=== PATIENT | female | born 1945 | race Caucasian/White ===

== ENCOUNTER 2020-07-31 11:19 | Inpatient (IN) ==
[2020-07-31] MEDS ORDERED: Dextrose Gel 15 GM/37.5 ML TUBE PO PRN ×2 (15:32)
[2020-07-31] MEDS ORDERED: D5% in Water 1,000 ML IVC PRN (15:32)
[2020-07-31] MEDS ORDERED: *HR* Dextrose 50 % in Water (Vial) 50 ML VIAL IVP PRN (15:32)
[2020-07-31] MEDS ORDERED: CEFTRIAXONE IN IS-OSM DEXTROSE 1 GM/50 ML PIGGYBACK IV SCH (16:00)
[2020-07-31] MEDS ORDERED: *HR* OxyCODONE Immed Rel 5 MG TABLET PO PRN ×2 (17:08→17:48)
[2020-07-31] MEDS: Insulin LISPRO 300 UNITS/3 ML VIAL SUBQ SCH ×2 (18:19→20:23)
[2020-07-31] MEDS: *HR* OxyCODONE Immed Rel 5 MG TABLET PO PRN ×2 (18:33→22:39)
[2020-07-31] MEDS: Acetaminophen 325 MG TABLET PO PRN (19:08)
[2020-07-31] MEDS: rOPINIRole 1 MG TABLET PO SCH (20:23)
[2020-07-31] MEDS: Aspirin 325 MG TABLET PO SCH (20:23)
[2020-07-31] MEDS: Melatonin 3 MG TABLET PO SCH (20:23)
[2020-07-31] MEDS: cefTRIAXone 2,000 MG in Water for inj. (sterile) 20 ML IVP SCH (20:24)
[2020-07-31] MEDS ORDERED: NON-FORMULARY MEDICATION 1 EACH EACH (Atorvastatin Calcium [Lipitor] 20 MG Tablet) PO SCH (21:00)
[2020-08-01] MEDS: *HR* OxyCODONE Immed Rel 5 MG TABLET PO PRN ×4 (03:31→17:05)
[2020-08-01 06:25] LABS: Basophils % 0.4 %; Eosinophils # 0.2 K/mcL (0.0-0.6); Eosinophils % 4.7 %; Hematocrit 22.7 % (35.3-44.9); Hemoglobin 7.1 g/dL (11.5-15.4); Immature Granulocytes % 0.4 % (0-4); Lymphocytes # 1.3 K/mcL (0.6-4.6); Lymphocytes % 28.1 %; Mean Corpuscular HGB Conc 31.3 g/dL (31.6-35.5); Mean Corpuscular Hemoglobin 27.2 pg (28.0-33.3); Mean Platelet Volume 9.9 fL (9.4-12.4); Monocytes # 0.4 K/mcL (0.0-1.3); Monocytes % 7.4 %; Neutrophils # 2.8 K/mcL (1.6-8.9); Platelet Count 269 K/mcL (140-400); Red Blood Count 2.61 M/mcL (3.82-4.97); Red Cell Distribution Width 15.5 % (11.5-14.5); White Blood Count 4.7 K/mcL (4.3-11.1)
[2020-08-01 06:33] LABS: Activated Partial Thrombo Time 22.4 Seconds (26.0-36.0)
[2020-08-01] MEDS: Insulin LISPRO 300 UNITS/3 ML VIAL SUBQ SCH ×4 (07:43→20:07)
[2020-08-01] MEDS: lisinopriL 10 MG TABLET PO SCH (07:53)
[2020-08-01] MEDS: Aspirin 325 MG TABLET PO SCH ×2 (07:54→20:05)
[2020-08-01] MEDS ORDERED: DAPTOmycin 500 MG in 0.9 % Sodium Chloride 100 ML IVPB SCH (10:00)
[2020-08-01] MEDS: DAPTOmycin 500 MG in 0.9 % Sodium Chloride 100 ML IVPB SCH (10:58)
[2020-08-01] MEDS: Nystatin POWDER 30 GM BOTTLE TP SCH ×2 (10:58→20:04)
[2020-08-01] MEDS: Acetaminophen 325 MG TABLET PO PRN (15:17)
[2020-08-01] MEDS ORDERED: *HR* OxyCODONE/APAP 5/325 TABLET PO ONE (18:01)
[2020-08-01] MEDS: *HR* LORazepam 0.5 MG TABLET PO PRN (20:05)
[2020-08-01] MEDS: rOPINIRole 1 MG TABLET PO SCH (20:05)
[2020-08-01] MEDS: Melatonin 3 MG TABLET PO SCH (20:05)
[2020-08-01] MEDS: cefTRIAXone 2,000 MG in Water for inj. (sterile) 20 ML IVP SCH (20:06)
[2020-08-02] MEDS: *HR* OxyCODONE Immed Rel 5 MG TABLET PO PRN ×5 (05:48→21:16)
[2020-08-02 06:18] LABS: Hematocrit 23.4 % (35.3-44.9); Hemoglobin 7.2 g/dL (11.5-15.4)
[2020-08-02] MEDS: Insulin LISPRO 300 UNITS/3 ML VIAL SUBQ SCH ×4 (09:02→21:17)
[2020-08-02] MEDS: Acetaminophen 325 MG TABLET PO PRN ×2 (09:03→17:15)
[2020-08-02] MEDS: Aspirin 325 MG TABLET PO SCH ×2 (09:03→21:17)
[2020-08-02] MEDS: Nystatin POWDER 30 GM BOTTLE TP SCH ×2 (09:04→21:17)
[2020-08-02] MEDS: lisinopriL 10 MG TABLET PO SCH (09:04)
[2020-08-02] MEDS: DAPTOmycin 500 MG in 0.9 % Sodium Chloride 100 ML IVPB SCH (11:39)
[2020-08-02] MEDS: *HR* LORazepam 0.5 MG TABLET PO PRN (17:15)
[2020-08-02] MEDS: Melatonin 3 MG TABLET PO SCH (21:16)
[2020-08-02] MEDS: rOPINIRole 1 MG TABLET PO SCH (21:16)
[2020-08-02] MEDS: cefTRIAXone 2,000 MG in Water for inj. (sterile) 20 ML IVP SCH (23:00)
[2020-08-03 06:21] LABS: Hematocrit 23.1 % (35.3-44.9); Hemoglobin 7.1 g/dL (11.5-15.4)
[2020-08-03] MEDS: Aspirin 325 MG TABLET PO SCH ×2 (09:35→21:41)
[2020-08-03] MEDS: lisinopriL 10 MG TABLET PO SCH (09:35)
[2020-08-03] MEDS: *HR* OxyCODONE Immed Rel 5 MG TABLET PO PRN ×4 (09:35→21:41)
[2020-08-03] MEDS: Insulin LISPRO 300 UNITS/3 ML VIAL SUBQ SCH ×4 (09:36→22:26)
[2020-08-03] MEDS: Nystatin POWDER 30 GM BOTTLE TP SCH ×2 (09:37→21:42)
[2020-08-03] MEDS: DAPTOmycin 500 MG in 0.9 % Sodium Chloride 100 ML IVPB SCH (12:55)
[2020-08-03] MEDS: Acetaminophen 325 MG TABLET PO PRN ×2 (12:58→19:46)
[2020-08-03] MEDS: rOPINIRole 1 MG TABLET PO SCH (17:46)
[2020-08-03] MEDS: Melatonin 3 MG TABLET PO SCH (21:41)
[2020-08-03] MEDS: cefTRIAXone 2,000 MG in 0.9 % Sodium Chloride Mini Bag 100 ML IVP SCH (21:41)
[2020-08-03] MEDS ORDERED: 0.9 % Sodium Chloride 250 ML ONE (23:02)
[2020-08-04] MEDS: *HR* Enoxaparin 40 MG/0.4 ML SYRINGE SQ SCH ×2 (05:14→08:04)
[2020-08-04] MEDS: *HR* OxyCODONE Immed Rel 5 MG TABLET PO PRN ×4 (05:23→20:52)
[2020-08-04 06:56] LABS: Hematocrit 27.2 % (35.3-44.9); Hemoglobin 8.4 g/dL (11.5-15.4); Mean Corpuscular HGB Conc 30.9 g/dL (31.6-35.5); Mean Corpuscular Volume 87.5 fL (83.0-100.0); Mean Platelet Volume 9.8 fL (9.4-12.4); Platelet Count 294 K/mcL (140-400); Red Blood Count 3.11 M/mcL (3.82-4.97); Red Cell Distribution Width 14.8 % (11.5-14.5); White Blood Count 4.5 K/mcL (4.3-11.1)
[2020-08-04 07:22] LABS: Calcium 8.1 mg/dL (8.6-10.3)
[2020-08-04] MEDS: Insulin LISPRO 300 UNITS/3 ML VIAL SUBQ SCH ×4 (08:01→21:01)
[2020-08-04] MEDS: Aspirin 325 MG TABLET PO SCH ×2 (08:02→20:52)
[2020-08-04] MEDS: Furosemide 40 MG TABLET PO SCH (08:02)
[2020-08-04] MEDS: lisinopriL 10 MG TABLET PO SCH (08:02)
[2020-08-04] MEDS: Acetaminophen 325 MG TABLET PO PRN ×2 (08:03→14:28)
[2020-08-04] MEDS: Nystatin POWDER 30 GM BOTTLE TP SCH ×2 (08:04→21:02)
[2020-08-04 11:10] LABS: Estimated Average Glucose 117 mg/dl; Hemoglobin A1C 5.7 %
[2020-08-04] MEDS: DAPTOmycin 500 MG in 0.9 % Sodium Chloride 100 ML IVPB SCH (12:11)
[2020-08-04] MEDS: rOPINIRole 1 MG TABLET PO SCH (16:30)
[2020-08-04] MEDS ORDERED: rOPINIRole 1 MG TABLET PO SCH (18:00)
[2020-08-04] MEDS: *HR* LORazepam 0.5 MG TABLET PO PRN (19:37)
[2020-08-04] MEDS: Melatonin 3 MG TABLET PO SCH (20:52)
[2020-08-04] MEDS: cefTRIAXone 2,000 MG in 0.9 % Sodium Chloride Mini Bag 100 ML IVP SCH (20:53)
[2020-08-05] MEDS: *HR* Enoxaparin 40 MG/0.4 ML SYRINGE SQ SCH (06:01)
[2020-08-05] MEDS: *HR* OxyCODONE Immed Rel 5 MG TABLET PO PRN ×5 (06:33→22:42)
[2020-08-05] MEDS: *HR* LORazepam 0.5 MG TABLET PO PRN ×2 (08:59→21:09)
[2020-08-05] MEDS: Furosemide 40 MG TABLET PO SCH (08:59)
[2020-08-05] MEDS: lisinopriL 10 MG TABLET PO SCH (08:59)
[2020-08-05] MEDS: Insulin LISPRO 300 UNITS/3 ML VIAL SUBQ SCH ×4 (08:59→19:57)
[2020-08-05] MEDS: Aspirin 325 MG TABLET PO SCH ×2 (08:59→21:09)
[2020-08-05] MEDS: Nystatin POWDER 30 GM BOTTLE TP SCH ×2 (09:00→21:50)
[2020-08-05] MEDS: Acetaminophen 325 MG TABLET PO PRN ×2 (09:06→16:39)
[2020-08-05] MEDS: DAPTOmycin 500 MG in 0.9 % Sodium Chloride 100 ML IVPB SCH (13:54)
[2020-08-05] MEDS: rOPINIRole 1 MG TABLET PO SCH (18:42)
[2020-08-05] MEDS: cefTRIAXone 2,000 MG in 0.9 % Sodium Chloride Mini Bag 100 ML IVP SCH (21:09)
[2020-08-05] MEDS: Melatonin 3 MG TABLET PO SCH (21:09)
[2020-08-06] MEDS: *HR* OxyCODONE Immed Rel 5 MG TABLET PO PRN ×3 (05:49→14:20)
[2020-08-06] MEDS: *HR* Enoxaparin 40 MG/0.4 ML SYRINGE SQ SCH (05:49)
[2020-08-06] MEDS: Insulin LISPRO 300 UNITS/3 ML VIAL SUBQ SCH ×4 (07:49→21:04)
[2020-08-06] MEDS: Furosemide 40 MG TABLET PO SCH (09:29)
[2020-08-06] MEDS: Aspirin 325 MG TABLET PO SCH ×2 (09:29→21:11)
[2020-08-06] MEDS: lisinopriL 10 MG TABLET PO SCH (09:29)
[2020-08-06] MEDS: Nystatin POWDER 30 GM BOTTLE TP SCH ×2 (09:31→21:12)
[2020-08-06] MEDS: DAPTOmycin 500 MG in 0.9 % Sodium Chloride 100 ML IVPB SCH (13:10)
[2020-08-06] MEDS: Acetaminophen 325 MG TABLET PO PRN (13:10)
[2020-08-06] MEDS: rOPINIRole 1 MG TABLET PO SCH (16:58)
[2020-08-06] MEDS: *HR* HYDROcodone/Acet 5/325 mg TABLET PO PRN ×2 (17:30→21:13)
[2020-08-06] MEDS: Melatonin 3 MG TABLET PO SCH (21:11)
[2020-08-06] MEDS: *HR* LORazepam 0.5 MG TABLET PO PRN (21:11)
[2020-08-06] MEDS: cefTRIAXone 2,000 MG in 0.9 % Sodium Chloride Mini Bag 100 ML IVP SCH (21:14)
[2020-08-07] MEDS: *HR* HYDROcodone/Acet 5/325 mg TABLET PO PRN ×5 (01:12→18:26)
[2020-08-07] MEDS: *HR* Enoxaparin 30 MG/0.3 ML SYRINGE SQ SCH (06:12)
[2020-08-07] MEDS: Insulin LISPRO 300 UNITS/3 ML VIAL SUBQ SCH ×4 (07:26→21:00)
[2020-08-07 08:55] LABS: Basophils % 0.7 %; Eosinophils # 0.2 K/mcL (0.0-0.6); Eosinophils % 4.5 %; Hemoglobin 8.7 g/dL (11.5-15.4); Immature Granulocytes % 0.5 % (0-4); Lymphocytes # 1.3 K/mcL (0.6-4.6); Mean Corpuscular HGB Conc 31.1 g/dL (31.6-35.5); Monocytes # 0.3 K/mcL (0.0-1.3); Monocytes % 6.4 %; Neutrophils # 2.4 K/mcL (1.6-8.9); Platelet Count 332 K/mcL (140-400); Red Blood Count 3.22 M/mcL (3.82-4.97); Red Cell Distribution Width 14.8 % (11.5-14.5); Segmented Neutrophils % 56.9 %; White Blood Count 4.2 K/mcL (4.3-11.1)
[2020-08-07 09:51] LABS: Albumin 3.4 g/dL (3.5-5.7); Albumin/Globulin Ratio 1.3 (1.1-2.2); Bilirubin,Indirect 0.3 mg/dL (0.0-1.0); Bilirubin,Total 0.3 mg/dL (0.3-1.0); Calcium 8.4 mg/dL (8.6-10.3); Globulin 2.7 g/dL (2.4-3.5); Potassium 4.1 mEq/L (3.5-5.1); Total Protein 6.1 g/dL (6.4-8.9)
[2020-08-07] MEDS: Aspirin 325 MG TABLET PO SCH ×2 (10:29→20:46)
[2020-08-07] MEDS: lisinopriL 10 MG TABLET PO SCH (10:29)
[2020-08-07] MEDS: Furosemide 40 MG TABLET PO SCH (10:29)
[2020-08-07] MEDS: Nystatin POWDER 30 GM BOTTLE TP SCH ×2 (10:31→20:46)
[2020-08-07] MEDS: DAPTOmycin 500 MG in 0.9 % Sodium Chloride 100 ML IVPB SCH (14:26)
[2020-08-07] MEDS: Acetaminophen 325 MG TABLET PO PRN (15:04)
[2020-08-07] MEDS: rOPINIRole 1 MG TABLET PO SCH (16:34)
[2020-08-07] MEDS: *HR* LORazepam 0.5 MG TABLET PO PRN (18:26)
[2020-08-07] MEDS: cefTRIAXone 2,000 MG in 0.9 % Sodium Chloride Mini Bag 100 ML IVP SCH (20:46)
[2020-08-07] MEDS: Melatonin 3 MG TABLET PO SCH (21:00)
[2020-08-08] MEDS: *HR* HYDROcodone/Acet 5/325 mg TABLET PO PRN ×4 (01:49→14:31)
[2020-08-08] MEDS: *HR* Enoxaparin 30 MG/0.3 ML SYRINGE SQ SCH (05:31)
[2020-08-08] MEDS: Insulin LISPRO 300 UNITS/3 ML VIAL SUBQ SCH ×4 (10:26→22:19)
[2020-08-08] MEDS: *HR* LORazepam 0.5 MG TABLET PO PRN (10:26)
[2020-08-08] MEDS: Aspirin 325 MG TABLET PO SCH ×2 (10:26→21:12)
[2020-08-08] MEDS: Nystatin POWDER 30 GM BOTTLE TP SCH ×2 (10:27→22:20)
[2020-08-08] MEDS: lisinopriL 10 MG TABLET PO SCH (10:27)
[2020-08-08] MEDS: Furosemide 40 MG TABLET PO SCH (10:27)
[2020-08-08] MEDS ORDERED: 0.9 % Sodium Chloride 1,000 ML ONE (12:06)
[2020-08-08] MEDS ORDERED: 0.9 % Sodium Chloride 500 ML ONE (12:07)
[2020-08-08] MEDS: DAPTOmycin 500 MG in 0.9 % Sodium Chloride 100 ML IVPB SCH (14:30)
[2020-08-08] MEDS: rOPINIRole 1 MG TABLET PO SCH (16:54)
[2020-08-08] MEDS: *HR* OxyCODONE Immed Rel 5 MG TABLET PO PRN (19:25)
[2020-08-08] MEDS: Melatonin 3 MG TABLET PO SCH (21:12)
[2020-08-08] MEDS: cefTRIAXone 2,000 MG in 0.9 % Sodium Chloride Mini Bag 100 ML IVP SCH (21:12)
[2020-08-09] MEDS: *HR* Enoxaparin 30 MG/0.3 ML SYRINGE SQ SCH (05:31)
[2020-08-09] MEDS: *HR* OxyCODONE Immed Rel 5 MG TABLET PO PRN ×3 (06:38→20:49)
[2020-08-09] MEDS: Insulin LISPRO 300 UNITS/3 ML VIAL SUBQ SCH ×4 (08:37→22:02)
[2020-08-09] MEDS: Furosemide 40 MG TABLET PO SCH (09:03)
[2020-08-09] MEDS: Nystatin POWDER 30 GM BOTTLE TP SCH ×2 (09:09→20:50)
[2020-08-09] MEDS: lisinopriL 10 MG TABLET PO SCH (09:09)
[2020-08-09] MEDS: Aspirin 325 MG TABLET PO SCH ×2 (09:09→20:50)
[2020-08-09] MEDS: Acetaminophen 325 MG TABLET PO PRN ×2 (09:09→14:15)
[2020-08-09] MEDS: DAPTOmycin 500 MG in 0.9 % Sodium Chloride 100 ML IVPB SCH (12:02)
[2020-08-09] MEDS: Gabapentin 100 MG CAPSULE PO SCH ×2 (14:37→20:50)
[2020-08-09] MEDS: rOPINIRole 1 MG TABLET PO SCH (16:42)
[2020-08-09] MEDS: Melatonin 3 MG TABLET PO SCH (20:50)
[2020-08-09] MEDS: cefTRIAXone 2,000 MG in 0.9 % Sodium Chloride Mini Bag 100 ML IVP SCH (20:50)
[2020-08-10] MEDS: *HR* Enoxaparin 30 MG/0.3 ML SYRINGE SQ SCH (06:06)
[2020-08-10] MEDS: *HR* OxyCODONE Immed Rel 5 MG TABLET PO PRN ×3 (06:06→20:40)
[2020-08-10] MEDS: Insulin LISPRO 300 UNITS/3 ML VIAL SUBQ SCH ×4 (07:44→20:55)
[2020-08-10] MEDS: Aspirin 325 MG TABLET PO SCH ×2 (08:22→20:40)
[2020-08-10] MEDS: Gabapentin 100 MG CAPSULE PO SCH ×3 (08:23→20:42)
[2020-08-10] MEDS: lisinopriL 10 MG TABLET PO SCH (08:23)
[2020-08-10] MEDS: Nystatin POWDER 30 GM BOTTLE TP SCH ×2 (08:25→20:56)
[2020-08-10] MEDS: DAPTOmycin 500 MG in 0.9 % Sodium Chloride 100 ML IVPB SCH (12:45)
[2020-08-10] MEDS: *HR* LORazepam 0.5 MG TABLET PO PRN (12:45)
[2020-08-10] MEDS: Acetaminophen 325 MG TABLET PO PRN ×2 (15:27→22:58)
[2020-08-10] MEDS: rOPINIRole 1 MG TABLET PO SCH (15:27)
[2020-08-10] MEDS: Melatonin 3 MG TABLET PO SCH (20:41)
[2020-08-10] MEDS: cefTRIAXone 2,000 MG in 0.9 % Sodium Chloride Mini Bag 100 ML IVP SCH (20:42)
[2020-08-11] MEDS: *HR* Enoxaparin 30 MG/0.3 ML SYRINGE SQ SCH (05:38)
[2020-08-11] MEDS: *HR* LORazepam 0.5 MG TABLET PO PRN (06:49)
[2020-08-11] MEDS: *HR* OxyCODONE Immed Rel 5 MG TABLET PO PRN ×4 (06:52→21:22)
[2020-08-11] MEDS: Aspirin 325 MG TABLET PO SCH ×2 (10:49→21:20)
[2020-08-11] MEDS: lisinopriL 10 MG TABLET PO SCH (10:49)
[2020-08-11] MEDS: Gabapentin 100 MG CAPSULE PO SCH ×3 (10:49→21:20)
[2020-08-11] MEDS: Insulin LISPRO 300 UNITS/3 ML VIAL SUBQ SCH ×4 (10:49→21:20)
[2020-08-11] MEDS: Nystatin POWDER 30 GM BOTTLE TP SCH ×2 (10:50→21:21)
[2020-08-11] MEDS: DAPTOmycin 500 MG in 0.9 % Sodium Chloride 100 ML IVPB SCH (12:25)
[2020-08-11] MEDS: rOPINIRole 1 MG TABLET PO SCH (17:20)
[2020-08-11] MEDS: Melatonin 3 MG TABLET PO SCH (21:20)
[2020-08-11] MEDS: cefTRIAXone 2,000 MG in 0.9 % Sodium Chloride Mini Bag 100 ML IVP SCH (21:21)
[2020-08-12] MEDS: *HR* OxyCODONE Immed Rel 5 MG TABLET PO PRN ×4 (03:36→20:23)
[2020-08-12] MEDS: *HR* Enoxaparin 30 MG/0.3 ML SYRINGE SQ SCH (06:03)
[2020-08-12] MEDS: Gabapentin 100 MG CAPSULE PO SCH ×3 (08:48→20:02)
[2020-08-12] MEDS: Insulin LISPRO 300 UNITS/3 ML VIAL SUBQ SCH (08:49)
[2020-08-12] MEDS: Aspirin 325 MG TABLET PO SCH ×2 (08:49→20:02)
[2020-08-12] MEDS: *HR* LORazepam 0.5 MG TABLET PO PRN (08:49)
[2020-08-12] MEDS: lisinopriL 10 MG TABLET PO SCH (08:49)
[2020-08-12] MEDS: Nystatin POWDER 30 GM BOTTLE TP SCH ×2 (12:40→20:03)
[2020-08-12] MEDS: DAPTOmycin 500 MG in 0.9 % Sodium Chloride 100 ML IVPB SCH (12:45)
[2020-08-12] MEDS: rOPINIRole 1 MG TABLET PO SCH (16:28)
[2020-08-12] MEDS: Melatonin 3 MG TABLET PO SCH (20:03)
[2020-08-12] MEDS: cefTRIAXone 2,000 MG in 0.9 % Sodium Chloride Mini Bag 100 ML IVP SCH (20:03)
[2020-08-13] MEDS: *HR* Enoxaparin 30 MG/0.3 ML SYRINGE SQ SCH (05:39)
[2020-08-13] MEDS: *HR* OxyCODONE Immed Rel 5 MG TABLET PO PRN (05:58)
[2020-08-13 06:31] VITALS: BP 149/68
[2020-08-13] MEDS ORDERED: Albuterol 2.5 MG/3 ML NEBULIZER IH PRN (06:40)
[2020-08-13 06:59] LABS: Basophils % 0.1 %; Eosinophils # 0.1 K/mcL (0.0-0.6); Eosinophils % 1.6 %; Hematocrit 26.7 % (35.3-44.9); Hemoglobin 8.2 g/dL (11.5-15.4); Immature Granulocytes % 0.5 % (0-4); Lymphocytes # 0.4 K/mcL (0.6-4.6); Lymphocytes % 5.6 %; Mean Corpuscular HGB Conc 30.7 g/dL (31.6-35.5); Mean Corpuscular Hemoglobin 26.5 pg (28.0-33.3); Mean Corpuscular Volume 86.4 fL (83.0-100.0); Mean Platelet Volume 9.4 fL (9.4-12.4); Monocytes # 0.3 K/mcL (0.0-1.3); Monocytes % 3.7 %; Platelet Count 340 K/mcL (140-400); Red Blood Count 3.09 M/mcL (3.82-4.97); Red Cell Distribution Width 14.6 % (11.5-14.5); Segmented Neutrophils % 88.5 %; White Blood Count 7.6 K/mcL (4.3-11.1)
[2020-08-13 07:16] LABS: Neutrophils # 6.7 K/mcL (1.6-8.9)
[2020-08-13 07:27] LABS: Calcium 8.6 mg/dL (8.6-10.3); Potassium 4.4 mEq/L (3.5-5.1)
[2020-08-13] MEDS ORDERED: *HR* Heparin 5,000 UNIT/ML VIAL IVP ONE (08:36)
[2020-08-13] MEDS ORDERED: *HR* Heparin 5,000 UNIT/ML VIAL IVP PRN ×2 (08:36)
[2020-08-13] MEDS ORDERED: Heparin 25,000UNIT/250ML 1/2NS 25,000 UNIT/250 ML IV.SOLN IVC SCH (08:45)
[2020-08-13 09:38] LABS: Hematocrit 25.9 % (35.3-44.9); Hemoglobin 7.9 g/dL (11.5-15.4); Mean Corpuscular HGB Conc 30.5 g/dL (31.6-35.5); Mean Corpuscular Volume 88.4 fL (83.0-100.0); Mean Platelet Volume 9.6 fL (9.4-12.4); Platelet Count 325 K/mcL (140-400); Red Blood Count 2.93 M/mcL (3.82-4.97); Red Cell Distribution Width 14.7 % (11.5-14.5)
== END 2020-08-13 09:55 | disposition short-term general hospital (02) | DRG 945 ==
LOC: INPPIK 16:56
PROVIDERS: ADMIT Family Medicine; ATTEND Family Medicine

== ENCOUNTER 2020-08-17 12:37 | Inpatient (IN) ==
[2020-08-17] MEDS ORDERED: *HR* OxyCODONE Immed Rel 5 MG TABLET PO PRN (15:07)
[2020-08-17] MEDS ORDERED: Ondansetron ODT 4 MG TAB.RAPDIS SL PRN (15:12)
[2020-08-17] MEDS ORDERED: *HR* Alteplase (Cathflo) 2 MG VIAL IVP PRN (15:17)
[2020-08-17 19:08] LABS: Hematocrit 26.2 % (35.3-44.9); Hemoglobin 8.2 g/dL (11.5-15.4); Mean Corpuscular HGB Conc 31.3 g/dL (31.6-35.5); Mean Corpuscular Hemoglobin 25.9 pg (28.0-33.3); Mean Corpuscular Volume 82.6 fL (83.0-100.0); Mean Platelet Volume 9.7 fL (9.4-12.4); Platelet Count 401 K/mcL (140-400); Red Blood Count 3.17 M/mcL (3.82-4.97); Red Cell Distribution Width 14.6 % (11.5-14.5); White Blood Count 7.5 K/mcL (4.3-11.1)
[2020-08-17 19:28] LABS: Calcium 8.6 mg/dL (8.6-10.3); Magnesium 1.4 mg/dL (1.6-2.6); Potassium 3.4 mEq/L (3.5-5.1)
[2020-08-17] MEDS: *HR* OxyCODONE/APAP 7.5/325 TABLET PO PRN (20:27)
[2020-08-17] MEDS: Aspirin 325 MG TABLET PO SCH (20:28)
[2020-08-17] MEDS: rOPINIRole 1 MG TABLET PO SCH (20:28)
[2020-08-17] MEDS: Melatonin 3 MG TABLET PO SCH (20:31)
[2020-08-17] MEDS: Gabapentin 100 MG CAPSULE PO SCH (20:31)
[2020-08-17] MEDS ORDERED: rOPINIRole 1 MG TABLET PO SCH (21:00)
[2020-08-18] MEDS: Aspirin 325 MG TABLET PO SCH ×2 (10:05→21:10)
[2020-08-18] MEDS: Furosemide 40 MG TABLET PO SCH (10:05)
[2020-08-18] MEDS: Gabapentin 100 MG CAPSULE PO SCH ×3 (10:05→21:10)
[2020-08-18] MEDS: cefTRIAXone 2,000 MG in 0.9 % Sodium Chloride Mini Bag 100 ML IVPB SCH (10:06)
[2020-08-18] MEDS: lisinopriL 10 MG TABLET PO SCH (10:06)
[2020-08-18] MEDS: *HR* OxyCODONE/APAP 7.5/325 TABLET PO PRN ×2 (10:09→17:29)
[2020-08-18] MEDS ORDERED: rOPINIRole 1 MG TABLET PO SCH (17:00)
[2020-08-18] MEDS: rOPINIRole 1 MG TABLET PO SCH (17:29)
[2020-08-18] MEDS: DAPTOmycin 500 MG in 0.9 % Sodium Chloride 100 ML IVPB SCH (17:29)
[2020-08-18] MEDS: Melatonin 3 MG TABLET PO SCH (21:11)
[2020-08-19] MEDS: Furosemide 40 MG TABLET PO SCH (09:36)
[2020-08-19] MEDS: lisinopriL 10 MG TABLET PO SCH (09:36)
[2020-08-19] MEDS: Gabapentin 100 MG CAPSULE PO SCH ×3 (09:36→21:18)
[2020-08-19] MEDS: Aspirin 325 MG TABLET PO SCH ×2 (09:37→21:16)
[2020-08-19] MEDS: cefTRIAXone 2,000 MG in 0.9 % Sodium Chloride Mini Bag 100 ML IVPB SCH (09:37)
[2020-08-19] MEDS: *HR* OxyCODONE/APAP 7.5/325 TABLET PO PRN ×2 (09:39→16:20)
[2020-08-19] MEDS: Magnesium Oxide 400 MG TABLET PO SCH ×2 (10:11→21:16)
[2020-08-19] MEDS: DAPTOmycin 500 MG in 0.9 % Sodium Chloride 100 ML IVPB SCH (16:20)
[2020-08-19] MEDS: rOPINIRole 1 MG TABLET PO SCH (16:20)
[2020-08-19] MEDS: Melatonin 3 MG TABLET PO SCH (21:17)
[2020-08-20 07:01] LABS: Basophils % 0.5 %; Eosinophils # 0.5 K/mcL (0.0-0.6); Hematocrit 25.8 % (35.3-44.9); Immature Granulocytes % 1.4 % (0-4); Lymphocytes # 1.3 K/mcL (0.6-4.6); Lymphocytes % 21.1 %; Mean Corpuscular Hemoglobin 25.9 pg (28.0-33.3); Mean Corpuscular Volume 83.5 fL (83.0-100.0); Mean Platelet Volume 9.6 fL (9.4-12.4); Monocytes # 0.5 K/mcL (0.0-1.3); Monocytes % 8.8 %; Neutrophils # 3.5 K/mcL (1.6-8.9); Platelet Count 405 K/mcL (140-400); Red Blood Count 3.09 M/mcL (3.82-4.97); Red Cell Distribution Width 14.7 % (11.5-14.5); Segmented Neutrophils % 59.2 %; White Blood Count 5.9 K/mcL (4.3-11.1)
[2020-08-20] MEDS: Gabapentin 100 MG CAPSULE PO SCH ×3 (07:55→22:58)
[2020-08-20] MEDS: Magnesium Oxide 400 MG TABLET PO SCH ×2 (07:55→22:58)
[2020-08-20] MEDS: Aspirin 325 MG TABLET PO SCH ×2 (07:55→22:59)
[2020-08-20] MEDS: *HR* OxyCODONE/APAP 7.5/325 TABLET PO PRN ×2 (07:55→14:47)
[2020-08-20] MEDS: lisinopriL 10 MG TABLET PO SCH (07:55)
[2020-08-20] MEDS: Furosemide 40 MG TABLET PO SCH (07:55)
[2020-08-20 08:53] LABS: Albumin 3.2 g/dL (3.5-5.7); Albumin/Globulin Ratio 1.1 (1.1-2.2); Bilirubin,Total 0.2 mg/dL (0.3-1.0); Calcium 8.6 mg/dL (8.6-10.3); Globulin 2.8 g/dL (2.4-3.5); Potassium 4.3 mEq/L (3.5-5.1)
[2020-08-20] MEDS: cefTRIAXone 2,000 MG in 0.9 % Sodium Chloride Mini Bag 100 ML IVPB SCH (10:19)
[2020-08-20] MEDS: rOPINIRole 1 MG TABLET PO SCH (15:48)
[2020-08-20] MEDS: *HR* LORazepam 0.5 MG TABLET PO PRN (15:48)
[2020-08-20] MEDS: DAPTOmycin 500 MG in 0.9 % Sodium Chloride 100 ML IVPB SCH (15:49)
[2020-08-20] MEDS: Melatonin 3 MG TABLET PO SCH (22:58)
[2020-08-21] MEDS ORDERED: Fluconazole 150 MG TABLET PO ONE (07:47)
[2020-08-21] MEDS: Aspirin 325 MG TABLET PO SCH ×2 (08:01→21:13)
[2020-08-21] MEDS: Gabapentin 100 MG CAPSULE PO SCH ×3 (08:01→21:13)
[2020-08-21] MEDS: Magnesium Oxide 400 MG TABLET PO SCH ×2 (08:01→21:13)
[2020-08-21] MEDS: Furosemide 40 MG TABLET PO SCH (08:01)
[2020-08-21] MEDS: *HR* OxyCODONE/APAP 7.5/325 TABLET PO PRN ×2 (08:02→17:32)
[2020-08-21] MEDS: cefTRIAXone 2,000 MG in 0.9 % Sodium Chloride Mini Bag 100 ML IVPB SCH (08:02)
[2020-08-21] MEDS: lisinopriL 10 MG TABLET PO SCH (08:02)
[2020-08-21] MEDS: DAPTOmycin 500 MG in 0.9 % Sodium Chloride 100 ML IVPB SCH (17:32)
[2020-08-21] MEDS: rOPINIRole 1 MG TABLET PO SCH (17:32)
[2020-08-21] MEDS: Melatonin 3 MG TABLET PO SCH (21:12)
[2020-08-22] MEDS: *HR* OxyCODONE/APAP 7.5/325 TABLET PO PRN ×2 (09:50→16:18)
[2020-08-22] MEDS: Aspirin 325 MG TABLET PO SCH ×2 (09:52→20:59)
[2020-08-22] MEDS: Furosemide 40 MG TABLET PO SCH (09:53)
[2020-08-22] MEDS: Magnesium Oxide 400 MG TABLET PO SCH ×2 (09:53→20:59)
[2020-08-22] MEDS: Gabapentin 100 MG CAPSULE PO SCH ×3 (09:54→20:58)
[2020-08-22] MEDS: lisinopriL 10 MG TABLET PO SCH (09:54)
[2020-08-22] MEDS: cefTRIAXone 2,000 MG in 0.9 % Sodium Chloride Mini Bag 100 ML IVPB SCH (09:54)
[2020-08-22] MEDS: rOPINIRole 1 MG TABLET PO SCH (16:18)
[2020-08-22] MEDS: DAPTOmycin 500 MG in 0.9 % Sodium Chloride 100 ML IVPB SCH (16:20)
[2020-08-22] MEDS: Melatonin 3 MG TABLET PO SCH (20:59)
[2020-08-23] MEDS: *HR* OxyCODONE/APAP 7.5/325 TABLET PO PRN ×3 (06:19→18:21)
[2020-08-23] MEDS: Magnesium Oxide 400 MG TABLET PO SCH ×2 (09:41→21:35)
[2020-08-23] MEDS: Aspirin 325 MG TABLET PO SCH ×2 (09:41→21:34)
[2020-08-23] MEDS: Furosemide 40 MG TABLET PO SCH (09:41)
[2020-08-23] MEDS: Gabapentin 100 MG CAPSULE PO SCH ×3 (09:41→21:35)
[2020-08-23] MEDS: lisinopriL 10 MG TABLET PO SCH (09:41)
[2020-08-23] MEDS: cefTRIAXone 2,000 MG in 0.9 % Sodium Chloride Mini Bag 100 ML IVPB SCH (09:42)
[2020-08-23] MEDS: DAPTOmycin 500 MG in 0.9 % Sodium Chloride 100 ML IVPB SCH (15:10)
[2020-08-23] MEDS: rOPINIRole 1 MG TABLET PO SCH (16:36)
[2020-08-23] MEDS: Melatonin 3 MG TABLET PO SCH (21:34)
[2020-08-24] MEDS: Aspirin 325 MG TABLET PO SCH ×2 (09:51→22:07)
[2020-08-24] MEDS: Gabapentin 100 MG CAPSULE PO SCH ×3 (09:52→22:07)
[2020-08-24] MEDS: Magnesium Oxide 400 MG TABLET PO SCH ×2 (09:52→22:07)
[2020-08-24] MEDS: lisinopriL 10 MG TABLET PO SCH (09:52)
[2020-08-24] MEDS: cefTRIAXone 2,000 MG in 0.9 % Sodium Chloride Mini Bag 100 ML IVPB SCH (09:52)
[2020-08-24] MEDS: Furosemide 40 MG TABLET PO SCH (09:52)
[2020-08-24] MEDS: *HR* OxyCODONE/APAP 7.5/325 TABLET PO PRN ×2 (11:40→17:48)
[2020-08-24] MEDS: rOPINIRole 1 MG TABLET PO SCH (16:38)
[2020-08-24] MEDS: DAPTOmycin 500 MG in 0.9 % Sodium Chloride 100 ML IVPB SCH (16:38)
[2020-08-24] MEDS: Melatonin 3 MG TABLET PO SCH (22:07)
[2020-08-25] MEDS: *HR* OxyCODONE/APAP 7.5/325 TABLET PO PRN ×3 (08:21→20:08)
[2020-08-25] MEDS: Aspirin 325 MG TABLET PO SCH ×2 (08:22→20:08)
[2020-08-25] MEDS: lisinopriL 10 MG TABLET PO SCH (08:22)
[2020-08-25] MEDS: cefTRIAXone 2,000 MG in 0.9 % Sodium Chloride Mini Bag 100 ML IVPB SCH (08:22)
[2020-08-25] MEDS: Gabapentin 100 MG CAPSULE PO SCH ×3 (08:22→20:08)
[2020-08-25] MEDS: Magnesium Oxide 400 MG TABLET PO SCH ×2 (08:22→20:08)
[2020-08-25] MEDS: Furosemide 40 MG TABLET PO SCH (08:22)
[2020-08-25] MEDS: DAPTOmycin 500 MG in 0.9 % Sodium Chloride 100 ML IVPB SCH (16:59)
[2020-08-25] MEDS: rOPINIRole 1 MG TABLET PO SCH (16:59)
[2020-08-25] MEDS: Melatonin 3 MG TABLET PO SCH (20:08)
[2020-08-26] MEDS: Magnesium Oxide 400 MG TABLET PO SCH ×2 (08:35→22:03)
[2020-08-26] MEDS: Aspirin 325 MG TABLET PO SCH ×2 (08:35→22:03)
[2020-08-26] MEDS: Gabapentin 100 MG CAPSULE PO SCH ×3 (08:36→22:03)
[2020-08-26] MEDS: Furosemide 40 MG TABLET PO SCH (08:37)
[2020-08-26] MEDS: *HR* OxyCODONE/APAP 7.5/325 TABLET PO PRN ×3 (08:37→22:04)
[2020-08-26] MEDS: cefTRIAXone 2,000 MG in 0.9 % Sodium Chloride Mini Bag 100 ML IVPB SCH (08:38)
[2020-08-26] MEDS: lisinopriL 10 MG TABLET PO SCH (08:38)
[2020-08-26] MEDS: rOPINIRole 1 MG TABLET PO SCH (16:09)
[2020-08-26] MEDS: DAPTOmycin 500 MG in 0.9 % Sodium Chloride 100 ML IVPB SCH (16:09)
[2020-08-26] MEDS: Melatonin 3 MG TABLET PO SCH (22:03)
[2020-08-27] MEDS: *HR* OxyCODONE/APAP 7.5/325 TABLET PO PRN ×3 (05:47→20:11)
[2020-08-27] MEDS: Gabapentin 100 MG CAPSULE PO SCH ×3 (08:05→20:11)
[2020-08-27] MEDS: Magnesium Oxide 400 MG TABLET PO SCH ×2 (08:05→20:11)
[2020-08-27] MEDS: lisinopriL 10 MG TABLET PO SCH (08:06)
[2020-08-27] MEDS: Furosemide 40 MG TABLET PO SCH (08:06)
[2020-08-27] MEDS: Aspirin 325 MG TABLET PO SCH ×2 (08:07→20:10)
[2020-08-27] MEDS: cefTRIAXone 2,000 MG in 0.9 % Sodium Chloride Mini Bag 100 ML IVPB SCH (08:08)
[2020-08-27] MEDS: DAPTOmycin 500 MG in 0.9 % Sodium Chloride 100 ML IVPB SCH (15:31)
[2020-08-27] MEDS: rOPINIRole 1 MG TABLET PO SCH (16:20)
[2020-08-27] MEDS: Melatonin 3 MG TABLET PO SCH (20:10)
[2020-08-28] MEDS: *HR* OxyCODONE/APAP 7.5/325 TABLET PO PRN ×3 (05:09→20:48)
[2020-08-28] MEDS: lisinopriL 10 MG TABLET PO SCH (09:41)
[2020-08-28] MEDS: Gabapentin 100 MG CAPSULE PO SCH ×3 (09:41→20:48)
[2020-08-28] MEDS: Aspirin 325 MG TABLET PO SCH ×2 (09:41→20:48)
[2020-08-28] MEDS: Furosemide 40 MG TABLET PO SCH (09:41)
[2020-08-28] MEDS: Magnesium Oxide 400 MG TABLET PO SCH ×2 (09:41→20:48)
[2020-08-28] MEDS: cefTRIAXone 2,000 MG in 0.9 % Sodium Chloride Mini Bag 100 ML IVPB SCH (09:42)
[2020-08-28] MEDS: Acetaminophen 325 MG TABLET PO PRN (14:38)
[2020-08-28] MEDS: DAPTOmycin 500 MG in 0.9 % Sodium Chloride 100 ML IVPB SCH (15:46)
[2020-08-28] MEDS: rOPINIRole 1 MG TABLET PO SCH (15:46)
[2020-08-28] MEDS: Melatonin 3 MG TABLET PO SCH (20:48)
[2020-08-29] MEDS: *HR* OxyCODONE/APAP 7.5/325 TABLET PO PRN ×3 (06:08→20:59)
[2020-08-29 06:15] LABS: Basophils % 0.6 %; Eosinophils # 0.3 K/mcL (0.0-0.6); Hematocrit 25.6 % (35.3-44.9); Hemoglobin 7.8 g/dL (11.5-15.4); Immature Granulocytes % 0.6 % (0-4); Lymphocytes # 1.4 K/mcL (0.6-4.6); Lymphocytes % 26.8 %; Mean Corpuscular HGB Conc 30.5 g/dL (31.6-35.5); Mean Corpuscular Hemoglobin 25.2 pg (28.0-33.3); Mean Corpuscular Volume 82.6 fL (83.0-100.0); Mean Platelet Volume 9.8 fL (9.4-12.4); Monocytes # 0.3 K/mcL (0.0-1.3); Monocytes % 5.9 %; Neutrophils # 3.2 K/mcL (1.6-8.9); Platelet Count 353 K/mcL (140-400); Red Cell Distribution Width 14.9 % (11.5-14.5); Segmented Neutrophils % 60.1 %; White Blood Count 5.3 K/mcL (4.3-11.1)
[2020-08-29 06:34] LABS: Albumin 3.2 g/dL (3.5-5.7); Albumin/Globulin Ratio 1.3 (1.1-2.2); Bilirubin,Total 0.3 mg/dL (0.3-1.0); Calcium 8.5 mg/dL (8.6-10.3); Globulin 2.5 g/dL (2.4-3.5); Potassium 5.4 mEq/L (3.5-5.1); Total Protein 5.7 g/dL (6.4-8.9)
[2020-08-29] MEDS: Magnesium Oxide 400 MG TABLET PO SCH ×2 (08:39→20:57)
[2020-08-29] MEDS: cefTRIAXone 2,000 MG in 0.9 % Sodium Chloride Mini Bag 100 ML IVPB SCH (08:39)
[2020-08-29] MEDS: Gabapentin 100 MG CAPSULE PO SCH ×3 (08:39→20:59)
[2020-08-29] MEDS: Aspirin 325 MG TABLET PO SCH (08:39)
[2020-08-29] MEDS: Furosemide 40 MG TABLET PO SCH (08:39)
[2020-08-29] MEDS ORDERED: 0.9 % Sodium Chloride 1,000 ML IVC SCH (15:45)
[2020-08-29] MEDS: rOPINIRole 1 MG TABLET PO SCH (16:17)
[2020-08-29] MEDS: Melatonin 3 MG TABLET PO SCH (20:57)
[2020-08-29] MEDS: Sulfamethoxazole/Trimeth DS 1 EACH TABLET PO SCH (20:58)
[2020-08-30] MEDS: *HR* LORazepam 0.5 MG TABLET PO PRN (01:49)
[2020-08-30] MEDS: *HR* OxyCODONE/APAP 7.5/325 TABLET PO PRN ×3 (03:05→14:06)
[2020-08-30] MEDS: *HR* Enoxaparin 30 MG/0.3 ML SYRINGE SQ SCH (05:29)
[2020-08-30 07:29] LABS: Hematocrit 24.7 % (35.3-44.9); Hemoglobin 7.7 g/dL (11.5-15.4); Mean Corpuscular HGB Conc 31.2 g/dL (31.6-35.5); Mean Corpuscular Hemoglobin 25.4 pg (28.0-33.3); Mean Corpuscular Volume 81.5 fL (83.0-100.0); Platelet Count 361 K/mcL (140-400); Red Blood Count 3.03 M/mcL (3.82-4.97); Red Cell Distribution Width 15.2 % (11.5-14.5); White Blood Count 5.8 K/mcL (4.3-11.1)
[2020-08-30 07:54] LABS: Calcium 8.6 mg/dL (8.6-10.3); Potassium 5.1 mEq/L (3.5-5.1)
[2020-08-30] MEDS: Furosemide 40 MG TABLET PO SCH (08:55)
[2020-08-30] MEDS: Aspirin Enteric Coated 81 MG Tablet PO SCH (08:56)
[2020-08-30] MEDS: Sulfamethoxazole/Trimeth DS 1 EACH TABLET PO SCH ×2 (08:57→20:41)
[2020-08-30] MEDS: Gabapentin 100 MG CAPSULE PO SCH ×3 (08:57→20:41)
[2020-08-30] MEDS: lisinopriL 10 MG TABLET PO SCH (08:57)
[2020-08-30] MEDS: Magnesium Oxide 400 MG TABLET PO SCH ×2 (08:58→20:41)
[2020-08-30] MEDS: cefTRIAXone 2,000 MG in 0.9 % Sodium Chloride Mini Bag 100 ML IVPB SCH (16:02)
[2020-08-30] MEDS: rOPINIRole 1 MG TABLET PO SCH (16:03)
[2020-08-30] MEDS: Melatonin 3 MG TABLET PO SCH (20:41)
[2020-08-31] MEDS: *HR* Enoxaparin 30 MG/0.3 ML SYRINGE SQ SCH (06:07)
[2020-08-31] MEDS: Aspirin Enteric Coated 81 MG Tablet PO SCH (07:51)
[2020-08-31] MEDS: lisinopriL 10 MG TABLET PO SCH (07:52)
[2020-08-31] MEDS: Magnesium Oxide 400 MG TABLET PO SCH ×2 (07:52→20:12)
[2020-08-31] MEDS: Gabapentin 100 MG CAPSULE PO SCH ×3 (07:52→20:12)
[2020-08-31] MEDS: Sulfamethoxazole/Trimeth DS 1 EACH TABLET PO SCH ×2 (07:52→20:12)
[2020-08-31] MEDS: Furosemide 40 MG TABLET PO SCH (07:53)
[2020-08-31] MEDS: *HR* OxyCODONE/APAP 7.5/325 TABLET PO PRN ×3 (07:53→20:12)
[2020-08-31] MEDS ORDERED: 0.9 % Sodium Chloride 1,000 ML IVC SCH (11:30)
[2020-08-31] MEDS: Acetaminophen 325 MG TABLET PO PRN (16:18)
[2020-08-31] MEDS: rOPINIRole 1 MG TABLET PO SCH (16:19)
[2020-08-31] MEDS: cefTRIAXone 2,000 MG in 0.9 % Sodium Chloride Mini Bag 100 ML IVPB SCH (16:19)
[2020-08-31] MEDS: Melatonin 3 MG TABLET PO SCH (20:13)
[2020-09-01] MEDS: *HR* Enoxaparin 30 MG/0.3 ML SYRINGE SQ SCH (05:36)
[2020-09-01 06:54] LABS: Calcium 8.6 mg/dL (8.6-10.3); Potassium 4.9 mEq/L (3.5-5.1)
[2020-09-01] MEDS: *HR* OxyCODONE/APAP 7.5/325 TABLET PO PRN ×2 (09:12→15:11)
[2020-09-01] MEDS: Gabapentin 100 MG CAPSULE PO SCH ×3 (09:13→20:14)
[2020-09-01] MEDS: Magnesium Oxide 400 MG TABLET PO SCH ×2 (09:13→20:13)
[2020-09-01] MEDS: Aspirin Enteric Coated 81 MG Tablet PO SCH (09:13)
[2020-09-01] MEDS: Sulfamethoxazole/Trimeth DS 1 EACH TABLET PO SCH ×2 (09:13→20:13)
[2020-09-01] MEDS: lisinopriL 10 MG TABLET PO SCH (09:13)
[2020-09-01] MEDS: Acetaminophen 325 MG TABLET PO PRN (11:03)
[2020-09-01] MEDS: rOPINIRole 1 MG TABLET PO SCH (16:19)
[2020-09-01] MEDS: cefTRIAXone 2,000 MG in 0.9 % Sodium Chloride Mini Bag 100 ML IVPB SCH (16:20)
[2020-09-01] MEDS: Melatonin 3 MG TABLET PO SCH (20:13)
[2020-09-02] MEDS: *HR* Enoxaparin 30 MG/0.3 ML SYRINGE SQ SCH (05:57)
[2020-09-02] MEDS: *HR* OxyCODONE/APAP 7.5/325 TABLET PO PRN ×3 (05:57→18:56)
[2020-09-02] MEDS: Furosemide 40 MG TABLET PO SCH ×2 (09:16→09:17)
[2020-09-02] MEDS: Gabapentin 100 MG CAPSULE PO SCH ×3 (09:17→20:32)
[2020-09-02] MEDS: Aspirin Enteric Coated 81 MG Tablet PO SCH (09:17)
[2020-09-02] MEDS: Sulfamethoxazole/Trimeth DS 1 EACH TABLET PO SCH ×2 (09:17→20:33)
[2020-09-02] MEDS: Magnesium Oxide 400 MG TABLET PO SCH ×2 (09:17→20:32)
[2020-09-02] MEDS: lisinopriL 10 MG TABLET PO SCH (09:17)
[2020-09-02] MEDS: cefTRIAXone 2,000 MG in 0.9 % Sodium Chloride Mini Bag 100 ML IVPB SCH (15:03)
[2020-09-02] MEDS: Acetaminophen 325 MG TABLET PO PRN (15:03)
[2020-09-02] MEDS: rOPINIRole 1 MG TABLET PO SCH (17:11)
[2020-09-02] MEDS: Melatonin 3 MG TABLET PO SCH (20:32)
[2020-09-03] MEDS: *HR* Enoxaparin 30 MG/0.3 ML SYRINGE SQ SCH (05:18)
[2020-09-03] MEDS: *HR* OxyCODONE/APAP 7.5/325 TABLET PO PRN ×3 (05:18→18:12)
[2020-09-03] MEDS: Acetaminophen 325 MG TABLET PO PRN ×2 (05:18→14:39)
[2020-09-03] MEDS: Aspirin Enteric Coated 81 MG Tablet PO SCH (09:58)
[2020-09-03] MEDS: Magnesium Oxide 400 MG TABLET PO SCH ×2 (09:58→20:47)
[2020-09-03] MEDS: Sulfamethoxazole/Trimeth DS 1 EACH TABLET PO SCH ×2 (09:58→20:47)
[2020-09-03] MEDS: lisinopriL 10 MG TABLET PO SCH (09:58)
[2020-09-03] MEDS: Furosemide 40 MG TABLET PO SCH (09:59)
[2020-09-03] MEDS: Gabapentin 100 MG CAPSULE PO SCH ×3 (10:01→20:47)
[2020-09-03] MEDS: rOPINIRole 1 MG TABLET PO SCH (16:26)
[2020-09-03] MEDS: cefTRIAXone 2,000 MG in 0.9 % Sodium Chloride Mini Bag 100 ML IVPB SCH (16:26)
[2020-09-03] MEDS: Melatonin 3 MG TABLET PO SCH (20:47)
[2020-09-04] MEDS: *HR* Enoxaparin 30 MG/0.3 ML SYRINGE SQ SCH (06:00)
[2020-09-04] MEDS: *HR* OxyCODONE/APAP 7.5/325 TABLET PO PRN ×2 (06:03→12:05)
[2020-09-04] MEDS: lisinopriL 10 MG TABLET PO SCH (09:29)
[2020-09-04] MEDS: Gabapentin 100 MG CAPSULE PO SCH ×3 (09:29→21:34)
[2020-09-04] MEDS: Sulfamethoxazole/Trimeth DS 1 EACH TABLET PO SCH ×2 (09:29→21:34)
[2020-09-04] MEDS: Acetaminophen 325 MG TABLET PO PRN ×2 (09:29→15:35)
[2020-09-04] MEDS: Magnesium Oxide 400 MG TABLET PO SCH ×2 (09:30→21:34)
[2020-09-04] MEDS: Aspirin Enteric Coated 81 MG Tablet PO SCH (09:30)
[2020-09-04] MEDS: Furosemide 40 MG TABLET PO SCH (09:30)
[2020-09-04] MEDS: cefTRIAXone 2,000 MG in 0.9 % Sodium Chloride Mini Bag 100 ML IVPB SCH (15:36)
[2020-09-04] MEDS: rOPINIRole 1 MG TABLET PO SCH (16:22)
[2020-09-04] MEDS: Melatonin 3 MG TABLET PO SCH (21:34)
[2020-09-05] MEDS: *HR* OxyCODONE/APAP 7.5/325 TABLET PO PRN (03:48)
[2020-09-05] MEDS: *HR* Enoxaparin 30 MG/0.3 ML SYRINGE SQ SCH (05:13)
[2020-09-05 06:50] VITALS: BP 142/64
[2020-09-05] MEDS: Sulfamethoxazole/Trimeth DS 1 EACH TABLET PO SCH (07:27)
[2020-09-05] MEDS: Aspirin Enteric Coated 81 MG Tablet PO SCH (07:27)
[2020-09-05 07:28] LABS: Basophils % 0.8 %; Eosinophils # 0.2 K/mcL (0.0-0.6); Eosinophils % 3.4 %; Hematocrit 26.9 % (35.3-44.9); Hemoglobin 8.2 g/dL (11.5-15.4); Immature Granulocytes % 0.4 % (0-4); Lymphocytes # 1.4 K/mcL (0.6-4.6); Mean Corpuscular HGB Conc 30.5 g/dL (31.6-35.5); Mean Corpuscular Hemoglobin 24.9 pg (28.0-33.3); Mean Corpuscular Volume 81.8 fL (83.0-100.0); Mean Platelet Volume 10.1 fL (9.4-12.4); Monocytes # 0.3 K/mcL (0.0-1.3); Monocytes % 6.3 %; Neutrophils # 3.3 K/mcL (1.6-8.9); Platelet Count 350 K/mcL (140-400); Red Blood Count 3.29 M/mcL (3.82-4.97); Red Cell Distribution Width 15.3 % (11.5-14.5); Segmented Neutrophils % 63.1 %; White Blood Count 5.2 K/mcL (4.3-11.1)
[2020-09-05] MEDS: lisinopriL 10 MG TABLET PO SCH (07:28)
[2020-09-05] MEDS: Acetaminophen 325 MG TABLET PO PRN (07:28)
[2020-09-05] MEDS: Furosemide 40 MG TABLET PO SCH (07:28)
[2020-09-05] MEDS: Magnesium Oxide 400 MG TABLET PO SCH (07:28)
[2020-09-05] MEDS: Gabapentin 100 MG CAPSULE PO SCH ×2 (07:28→14:20)
[2020-09-05 07:36] LABS: Albumin 3.5 g/dL (3.5-5.7); Albumin/Globulin Ratio 1.2 (1.1-2.2); Bilirubin,Total 0.3 mg/dL (0.3-1.0); Globulin 2.9 g/dL (2.4-3.5); Potassium 5.6 mEq/L (3.5-5.1); Total Protein 6.4 g/dL (6.4-8.9)
== END 2020-09-05 16:20 | disposition home health service (06) | DRG 945 ==
LOC: INPPIK 16:07
PROVIDERS: ADMIT Family Medicine; ATTEND Family Medicine